=== PATIENT | female | born 1990 | race American Indian/Alaskan Native ===

== ENCOUNTER 2020-07-07 01:23 | Emergency (ER) | payer SELFPAY ==
[2020-07-07 02:41] VITALS: BP 118/52
== END 2020-07-07 03:00 | disposition left against medical advice (07) ==
LOC: ED 01:23
DX: M79.605 Pain in left leg (principal); Z53.21 Procedure and treatment not carried out due to patient leaving prior to being seen by health care provider

== ENCOUNTER 2020-07-07 11:28 | Emergency (ER) | payer MEDICAID ==
[2020-07-07 11:46] VITALS: BP 111/50
--- NOTE | 2020-07-07 12:30 | Emergency Department Report ---
ED General Adult HPI - General Chief complaint: Extremity Injury, Lower Stated complaint: LT LEG PAIN/SWOLLEN Time Seen by Provider: 07/07/20 12:24 Source: patient Mode of arrival: Ambulatory Limitations: No Limitations - History of Present Illness Initial comments: 30-year-old female patient presents emergency department with complaints of painful erythema to her left lower leg starting 2 days ago. Patient states she accidentally bumped her left lower leg while she was at work. No recent antibiotic use. No known history of MRSA. No recent hospitalizations. Denies fever, chills, paresthesias, numbness, weakness, purulent drainage. Denies all other complaints at this time. - Related Data Previous Rx's Medication Instructions Recorded Last Taken Type cephALEXin [Keflex] 500 mg PO QID 5 Days capsule 07/07/20 Unknown Rx Allergies Allergy/AdvReac Type Severity Reaction Status Date / Time No Known Allergies Allergy Unverified 07/07/20 02:37 ED Review of Systems ROS: Stated complaint: LT LEG PAIN/SWOLLEN Other details as noted in HPI Other: GENERAL: Negative for fever. CARDIOVASCULAR: Negative for chest pain. PULMONARY: Negative for shortness of breath. GASTROINTESTINAL: Negative for abdominal pain. MUSCULOSKELETAL: Negative for back pain. NEUROLOGICAL: Negative for headache. INTEGUMENTARY: Positive for warmth and erythema. ED Past Medical Hx - Social History Smoking Status: Never Smoker Substance Use Type: None - Medications Home Medications: Home Medications Medication Instructions Recorded Confirmed Last Taken Type cephALEXin [Keflex] 500 mg PO QID 5 Days capsule 07/07/20 Unknown Rx ED Physical Exam - General Limitations: No Limitations - Other Other exam information: General: Awake, appropriately interactive, no acute distress. Neck: Supple. Full range of motion intact. Cardiovascular: Normal peripheral perfusion. Pulmonary: No respiratory distress. Patient is speaking normally without use of accessory muscles. Skin: 9 cm x 8 cm area of warmth and erythema noted to the anterior left lower leg. No proximally streaking erythema. No crepitus. No fluctuance. No necrosis. Pain is appropriately proportional to exam findings. Neurological: No facial asymmetry. Speech is clear. Follows commands. Patient is alert and oriented. Musculoskeletal: Moves all four extremities spontaneously with normal range of motion. Psych: Cooperative. Appropriate mood and affect. ED Course Vital Signs 07/07/20 11:45 Temperature 98.8 F Pulse Rate 88 Respiratory 20 Rate Blood Pressure 111/50 O2 Sat by Pulse 100 Oximetry ED Medical Decision Making - Medical Decision Making Differential diagnosis including but not limited to: cellulitis, erysipelas, contact dermatitis, tinea corporis, necrotizing soft tissue infection Patient presents emergency department with uncomplicated nonpurulent cellulitis of the left lower extremity. She is afebrile, hemodynamically stable, neurovascularly intact, ambulatory without assistance. Pain is appropriately proportional to exam findings. No clinical indication for further diagnostic work-up and/or IV antibiotics at this time patient will be discharged home with prescription for Keflex per current IDSA guidelines. Patient instructed to follow-up with primary care provider this week for reevaluation. Patient expressed understanding and is agreeable to plan of care. Strict return precautions provided. Repeat exam is unremarkable and benign. History, exam, diagnostic testing, and current condition do not suggest worrisome pathology to warrant further testing, continued ED treatment, admission, or surgical evaluation at this point. Given the low probability of a significant medical illness, it would be more likely to result in harm than benefit to perform further testing at this stage. Discussed findings, presumptive diagnosis, need for follow-up and specific signs/symptoms that should prompt immediate return to the emergency department. Instructions were explained in detail to the patient in addition to giving written discharge information. Patient expressed understanding and was given the opportunity to ask questions, all of which were satisfactorily answered prior to discharge home. Critical care attestation.: If time is entered above; I have spent that time in minutes in the direct care of this critically ill patient, excluding procedure time. ED Disposition Clinical Impression: Cellulitis of left lower leg Disposition: DC-01 TO HOME OR SELFCARE Is pt being admited?: No Does the pt Need Aspirin: No Condition: Stable Instructions: Cellulitis, Adult, [id number] Additional Instructions: Take Tylenol every 4 hours and Motrin every 8 hours as needed for pain. Take Keflex with food as directed. Increase your dietary intake of probiotic rich foods while taking this medication. Apply warm compresses to the affected area 3 times daily to promote blood flow. Follow-up with primary care provider this week for reevaluation. Call tomorrow to schedule appointment. See referral information below. Return to the emergency department immediately for new or worsening symptoms. Specifically, return to the emergency department immediately for fever, worsening pain, or if the area of redness continues to expand 24 hours after starting antibiotics. Prescriptions: cephALEXin [Keflex] 500 mg PO QID 5 Days capsule Referrals: JAIDEN COATS MD [Staff Physician] - 3-5 Days [facility] [Outside] - 3-5 Days [facility] [Outside] - 3-5 Days [facility] [Outside] - 3-5 Days [facility] [Provider Group] - 3-5 Days Forms: Work/School Release Form(ED) Time of Disposition: 12:31
== END 2020-07-07 13:40 | disposition home or self-care (01) ==
LOC: ED 11:28
DX: L03.116 Cellulitis of left lower limb (principal); Z79.899 Other long term (current) drug therapy
CPT/HCPCS: 99282